=== PATIENT | female | born 1975 | race Caucasian/White ===

== ENCOUNTER 2018-09-25 12:07 | Inpatient (IN) ==
[2018-09-25 12:54] LABS: Basophils # (auto) 0.01 K/uL (0-0.2); Basophils % (auto) 0.2 %; Eosinophils # (auto) 0.06 K/uL (0-0.5); Eosinophils % (auto) 0.9 %; Hematocrit (blood only) 35.1 % (37-47); Hemoglobin 11.5 g/dL (12.0-16.0); Immature Granulocytes # (auto) 0.01 K/uL (0.00-0.02); Immature Granulocytes % (auto) 0.2 %; Lymphocytes % (auto) 12.5 %; Mean Corpuscular Hgb Conc 32.8 g/dL (32-36); Mean Corpuscular Volume 84.2 fL (80-100); Mean Platelet Volume 9.9 fL (7.4-10.4); Monocytes # (auto) 0.38 K/uL (0.11-0.59); Monocytes % (auto) 5.9 %; Neutrophils # (auto) 5.14 K/uL (1.4-6.5); Neutrophils % (auto) 80.3 %; Platelet Count 215 K/uL (130-400); RDW Coefficient of Variation 14.8 % (11.5-14.5); RDW Standard Deviation 45.4 fL (36.4-46.3); Red Blood Count 4.17 M/uL (4.2-5.4)
[2018-09-25 13:11] LABS: Calcium 8.6 mg/dl (8.5-10.1); Creatinine Clr Calc Pharmacy 196.4 ml/min; Est GFR (African American) 135.6; Potassium 3.9 mmol/L (3.5-5.1)
[2018-09-25] MEDS ORDERED: VANCOMYCIN CONSULT ACTIVE PRN ×2 (13:22→16:12)
[2018-09-25] MEDS ORDERED: VANCOMYCIN HCL 1,000 MG/270 ML BAG IV STA (13:22)
[2018-09-25] MEDS ORDERED: LISINOPRIL 40 MG TAB PO SCH (14:15)
--- NOTE | 2018-09-25 14:19 | History & Physical Report ---
Date of Service September 25, 2018 Assessment & Plan (1) Cellulitis of right lower extremity: This is a 42-year-old male who has a significant past medical history of T2 DM, psoriasis, polycystic ovarian disease who presents to [facility] secondary to increased redness and swelling of right lower extremity x 3 days. Patient does not meet SIRS or Sepsis criteria WBC 6.4, Lactate 1.2, afebrile, HR > 90 Pt does have extensive RLE Cellulitis which failed outpatient therapy of keflex -admit to med/surg telemetry given tachycardia/HTN -Continue IV Vanco, dosed per pharmacy -wound culture drainage and MRSA swab -monitor closely for improvement -Venous doppler negative 09/23 so do not feel this needs repeated at this time. (2) Diabetes: -Last A1C 7.5 02/2018 -hold outpatient regimen of jardiance, glipizide and tradjenta -Place on lantus/novolog per protocol (3) HTN (hypertension): -blood pressure elevated on admission -Will give pts home dose of lisinopril now as well as control pain, likely a precipitating factor -continue lisinopril (4) DVT prophylaxis: -lovenox given immobility from RLE cellulitis Disposition: D/C to home when able Follow up: PCP Dr. Cedillo upon discharge Patient was seen and examined in collaboration with Dr. Arango, please see addendum Starting 09/26/18 patient will be under the care of Dr. Jay History of Present Illness Chief Complaint: RLE redness and swelling x 3 days. Primary Care Provider: Lauren Klein This is a 42-year-old male who has a significant past medical history of T2 DM, psoriasis, polycystic ovarian disease who presents to [facility] secondary to increased redness and swelling of right lower extremity x 3. Patient symptoms initially started on 09/22 with erythema to the right pretibial region. She presented to urgent care on 09/23. She underwent venous Doppler which was negative for DVT and placed on Keflex 500 mg 4 times daily for cellulitis. Patient has not missed a dose of Keflex, but has noticed minimal improvement of symptoms. She was seen by PCP today Dr. Klein who recommended patient be seen in ED for likely IV antibiotics. Pt has hx of b/l lower ext cellulitis in 2000 which required IV antibiotics. She has no known injury to trauma to RLE but she does have active psoriasis. She overall feels chills and woke up with sweats early this morning, nausea and decreased appetite. Further she complains of significant right lower extremity pain 03/03. Upon arrival to ED she noticed drainage from right lower extremity. She denies documented fever, dizziness, lightheadedness, chest pain, shortness breath, palpitations, emesis, diarrhea, abdominal pain, dysuria, increased urgency or frequency with urination. Allergies Allergy/AdvReac Type Severity Reaction Status Date / Time metformin AdvReac Nausea Unverified 09/25/18 12:50 Home Medications Home Medications Medication Instructions Recorded Confirmed Type aspirin 81 mg PO DAILY 09/25/18 09/25/18 History atorvastatin 20 mg PO HS 09/25/18 09/25/18 History clobetasol 1 applic TOPICAL BID 09/25/18 09/25/18 History empagliflozin [Jardiance] 25 mg PO DAILY 09/25/18 09/25/18 History glipizide 10 mg PO DAILY 09/25/18 09/25/18 History linagliptin [Tradjenta] 5 mg PO DAILY 09/25/18 09/25/18 History lisinopril 40 mg PO DAILY 09/25/18 09/25/18 History sulindac 200 mg PO BID 09/25/18 09/25/18 History Past Med/Surg History Medical History HTN (hypertension) (Chronic) Polycystic ovarian disease (Chronic) Psoriasis (Chronic) Diabetes (Chronic) Surgical History History of section (Chronic) x 2 History of tooth extraction (Chronic) all teeth extraced Family History Mother Pulmonary embolism Father Diabetes Grandmother (Maternal) Diabetes CHF (congestive heart failure) Social History Preferred Language: Tajik Communication Ability: Effective Switchgear Repairer Required: No Beliefs That Will Affect Care: None marital status: Current Living Situation: Spouse and Family Current Living Situation Comment: and 2 children current occupational status: other 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 Other Information That Helps Us Care for You: No Feels Safe at Home: Yes Safety Concerns: Feels Safe At This Time Smoking Status: Never smoker Hx Alcohol Use: No Hx Substance Use: No Review of Systems All systems reviewed & are unremarkable except as noted in HPI & below Physical Exam Vital Signs (Past 24 Hours): Last Vital Signs Temp 36.7 C 09/25/18 12:17 Pulse 100 H 09/25/18 12:17 Resp 20 09/25/18 12:17 BP 162/97 H 09/25/18 12:17 Pulse Ox 99 09/25/18 12:17 Physical Exam: Gen: WD/WN, morbidly obese, F, NAD, sitting up in bed, pleasant, conversing easily Head: Normocephalic, Atraumatic Eyes: Sclera normal, no conjunctival injection, PERRLA, EOMI ENT: Gross hearing intact, normal pharynx, mucous membranes moist, absent dentition Neck: supple, no adenopathy, No JVD, no bruit, Resp: Clear to auscultation b/l, no wheeze, rales, rhonchi. Normal insp/exp effort, no accessory muscle use CV: Regular rate, regular rhythm, 2/6 harsh natasha noted RUSB, no rub, gallop, or ectopy Abd: +BS x 4, +obese, soft, nontender, nondistended Musculoskeletal: moves extremities active rom x 4, strength intact, good assistant child care teacher strength Extremities: RLE edema with significant erythema and warmth starting at medial mallelolar region extending 1/[address] up pretibial surface anterior and extending to popliteal fossa posterior, blanchable, warm, painful to touch. RLE anteriorly has area of clear drainage, LLE no edema, + area of venous insufficiency from prior cellulitis. Skin: warm, moist, no rash, negative turgor, cap refill < 2sec Neuro: Alert and oriented x 3, speech normal, good mood/affect, cran nerve 2-12 intact grossly : deferred Results & Data Laboratory Results Short CBC 09/25/18 Range/Units 12:42 WBC 6.40 (4.8-10.8) K/uL Hgb 11.5 L (12.0-16.0) g/dL Hct 35.1 L (37-47) % Plt Count 215 (130-400) K/uL BMP 09/25/18 12:42 Sodium 137 Potassium 3.9 Chloride 101 Carbon Dioxide 29 BUN 8 Creatinine 0.52 L Glucose 209 H Calcium 8.6 Diagnostic Findings Venous doppler U/S from 09/23/18 VASCULAR LAB RESULTS DATE OF EXAM: 09/23/18 PRESENTING CONDITIONS: pain and redness This is an interpretation of an exam performed at the [facility]. PHYSICIAN REPORT: Lower Extremity Venous Duplex Examination Immediately before proceeding with the vascular lab procedure reported below, the identity of the patient, the correct exam and the correct procedural site were verified. Color flow Doppler, spectral analysis, and transducer compression techniques were applied during this ultrasound image examination. RIGHT LOWER EXTREMITY On duplex examination, the right common femoral vein, the sapheno-femoral junction, the femoral vein in the thigh and popliteal vein are all free of echogenic densities and demonstrate normal transducer compressibility during montalvo scale imaging and normal respiratory and augmentation response during Doppler interrogation. The posterior tibial veins and peroneal veins demonstrate no evidence of thrombosis. The contralateral common femoral vein is patent without echogenic densities. IMPRESSION: Patent right lower extremity venous system. No evidence of acute deep venous thrombosis of the right lower extremity. Additional Comments: The patient's primary care physician was contacted with a preliminary report. Medications Administered Vancomycin HCl (Vancomycin Hcl) 1,000 mg in 270 mls @ 125 mls/hr IV NOW STA Stop: 09/25/18 15:31 Last Admin: 09/25/18 13:58 Dose: 125 mls/hr Documented by: [id number] Code Status & VTE Plan Code Status full code VTE Prophylaxis Plan VTE Prophylaxis will be ordered: Yes Supervising Physician Co-Signing Physician Notes Patient is a 42-year-old female with history of diabetes and other problems presents with history of worsening redness, pain and swelling of her right lower extremity since 3 days duration. She had a venous Doppler as outpatient which showed no DVT. Patient failed p.o. Keflex which was started as outpatient. On exam patient is morbidly obese, no apparent distress, normocephalic atraumatic, lungs are clear to auscultation, S1-S2, tachycardia, no murmur abdomen is soft nontender, right lower extremity erythematous, tender, swelling noted. Neurologically no focal deficits. Patient is admitted for the management of right lower extremity cellulitis. No signs of sepsis. Patient will be started on broad-spectrum antibiotics with Vanco and Zosyn. Check MRSA swab. Blood cultures were obtained. Consider repeat imaging if no improvement. Lovenox for DVT prophylaxis. I personally reviewed the record. Patient is interviewed and examined at bedside. Patient's care is coordinated with Stephy Cash PA-C. Please refer to the documentation above for details of patient's presentation and for discussion of other issues. (1) Diabetes Diabetes mellitus complication detail: with dermatitis Diabetes mellitus complication status: with skin complications Diabetes mellitus predatory animal exterminator insulin use: without predatory animal exterminator use Diabetes mellitus type: type 2 Qualified Code(s): E11.620 - Type 2 diabetes mellitus with diabetic dermatitis (2) HTN (hypertension) Hypertension type: essential hypertension Qualified Code(s): I10 - Essential (primary) hypertension
[2018-09-25] MEDS ORDERED: MoRPHine SULFATE 4 MG/ML 1 ML CARP\\VIAL IV STA (14:43)
--- NOTE | 2018-09-25 16:05 | Emergency Department Note ---
Entered by Eulalia Nguyen acting as a scribe for Jeffry Pena History of Present Illness General Chief complaint: Infection Stated complaint: CELLULITIS, SENT BY DR CRESPO Time Seen by Provider: 09/25/18 12:26 Source: patient Limitations: no limitations History of Present Illness Provider complaint: infection Onset (ago): day(s) 3 Location: lower extremity and right Maximum Pain Intensity: 9 Associated symptoms: no fever/chills Treatments prior to arrival: other (cephalexin) The patient is a 42 year old female who presents to the Emergency Room with complaints of an infection on her right leg that began 3 days prior to arrival. The patient states that she went to [facility] on Saturday and was given 500mg of cephalexin 2x a day. The patient denies any fevers. The patient states that her leg just began draining. The patient states that she has a history of psoriasis and diabetes. Home Medications Home Medications Medication Instructions Recorded Confirmed Type aspirin 81 mg PO DAILY 09/25/18 09/25/18 History atorvastatin 20 mg PO HS 09/25/18 09/25/18 History clobetasol 1 applic TOPICAL BID 09/25/18 09/25/18 History empagliflozin [Jardiance] 25 mg PO DAILY 09/25/18 09/25/18 History glipizide 10 mg PO DAILY 09/25/18 09/25/18 History linagliptin [Tradjenta] 5 mg PO DAILY 09/25/18 09/25/18 History lisinopril 40 mg PO DAILY 09/25/18 09/25/18 History sulindac 200 mg PO BID 09/25/18 09/25/18 History Allergies Allergy/AdvReac Type Severity Reaction Status Date / Time metformin AdvReac Nausea Unverified 09/25/18 12:50 Past Med/Surg History Medical History HTN (hypertension) (Chronic) Polycystic ovarian disease (Chronic) Psoriasis (Chronic) Diabetes (Chronic) Surgical History History of section (Chronic) x 2 History of tooth extraction (Chronic) all teeth extraced Family History Mother Pulmonary embolism Father Diabetes Grandmother (Maternal) Diabetes CHF (congestive heart failure) Social History Preferred Language: Sinhala Communication Ability: Effective Tire Groover Required: No Beliefs That Will Affect Care: None marital status: Current Living Situation: Spouse and Family Current Living Situation Comment: and 2 children current occupational status: other 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 and A total of 10 systems reviewed and were otherwise negative See HPI for pertinent positives & negatives. A total of 10 systems reviewed and were otherwise negative. Physical Exam Vital Signs Vital Signs - 24 hr 09/25/18 12:17 09/25/18 14:33 09/25/18 15:20 Temperature 36.7 C Temperature Source Oral Sepsis Recent Fever Within 48 Hours No Sepsis New/Unexplained Change in Mental Status No Sepsis Action Taken by Nursing No Action Required Pulse Rate 100 H Pulse Rate [Right Finger] 85 Pulse Rhythm Regular Pulse Rhythm [Right Finger] Regular Pulse Strength Normal Pulse Strength [Right Finger] Normal Respiratory Rate 20 18 Respiratory Effort / Characteristics Non-Labored Spontaneous Non-Labored Respiratory Depth Normal Normal Respiratory Pattern Regular Blood Pressure 162/97 H Blood Pressure [Left Arm] 190/121 H 154/82 H Blood Pressure Mean 118 Blood Pressure Mean [Left Arm] 144 106 Blood Pressure Position Sitting Pulse Oximetry 99 98 Oxygen Delivery Method Room Air GENERAL: She is oriented to person, place, and time. She appears well-developed and well-nourished. She does not appear distressed. HENT: Exam performed. Head: Normocephalic and atraumatic. Right Ear: External ear normal. No mastoid tenderness. Left Ear: External ear normal. No mastoid tenderness. Mouth/Throat: The oropharynx is clear and moist. No trismus in the jaw. No dental abscesses or uvula swelling. No oropharyngeal exudate or tonsillar abscesses. EYES: Conjunctivae and EOM are normal. Pupils are equal, round, and reactive to light. Right eye exhibits no discharge. Left eye exhibits no discharge. No scleral icterus. NECK: Normal range of motion. Neck supple. No JVD present. No spinous process tenderness present. No carotid bruit present. No rigidity. No tracheal deviation and normal range of motion present. No Brudzinski's sign and no Kernig's sign noted. CV: Normal rate, regular rhythm, normal heart sounds and intact distal pulses. There is no peripheral edema. Palpable radial pulses bue. PULM/CHEST: Effort normal and breath sounds normal. No respiratory distress. No stridor. She has no wheezes. She has no rales. Chest Wall: She exhibits no tenderness. ABD: The abdomen is soft. Bowel sounds are normal. She has no distension. No mass is present. There is no tenderness. There is no rebound, no guarding, no Serrano's sign and no tenderness at McBurney's point. Rovsig negative MUSC/SKEL: Normal range of motion. There is no peripheral edema, tenderness or deformity. LYMPH: No cervical adenopathy. NEURO: She is alert and oriented to person, place, and time. She has normal strength. No cranial nerve deficit or sensory deficit. Coordination and gait normal. GCS eye subscore is 4. GCS verbal subscore is 5. GCS motor subscore is 6. cerbellar tests wnl. SKIN: Right lower extremity on the anterior knee and posterior thigh there is a patch of psoriasis with silver scales. Diffuse erythema, warmness, and tenderness to touch over the lower extremity from the foot to the posterior calf up to the posterior thigh. Drainage, no fluctuant area, no vesicles, Nikolsky sign negative. PSYCH: She has a normal mood and affect. Her behavior is normal. Judgment and thought content normal. Course 1227: Past medical records reviewed. The patient was evaluated in room C12A, and a complete history and physical examination were performed. 1324: The patient's vital signs are stable. Labs are within normal limits. Patient will be admitted to the hospital service for cellulitis failed outpatient treatment. 1 g of vancomycin given in emergency department. I discussed the patient's case with [facility] who will evaluate the patient for further hospitalization. Consultations Consultation #1: Stephy Ortiz [facility] Time: 13:24 Administered Medications Discontinued Medications Vancomycin HCl (Vancomycin Hcl) 1,000 mg in 270 mls @ 125 mls/hr IV NOW STA Stop: 09/25/18 15:31 Last Admin: 09/25/18 13:58 Dose: 125 mls/hr Documented by: [id number] Lisinopril (Zestril) 40 mg PO DAILY CAILIN Stop: 10/25/18 14:14 Last Admin: 09/25/18 14:30 Dose: 40 mg Documented by: [id number] Morphine Sulfate (Morphine Sulfate) 4 mg IV NOW STA Stop: 09/25/18 14:44 Last Admin: 09/25/18 15:05 Dose: 4 mg Documented by: [id number] Medical Decision Making Medical Records Attestation: I reviewed the patient's medical records. Home Medications Current Medication List: was personally reviewed by me Laboratory Data Attestation: I reviewed the patient's lab results. Result diagrams: 09/25/18 12:42 09/25/18 12:42 Lab Results 09/25/18 09/25/18 09/25/18 Range/Units 12:42 12:42 12:42 WBC 6.40 (4.8-10.8) K/uL RBC 4.17 L (4.2-5.4) M/uL Hgb 11.5 L (12.0-16.0) g/dL Hct 35.1 L (37-47) % MCV 84.2 (80-100) fL MCH 27.6 (25-34) pg MCHC 32.8 (32-36) g/dL RDW Std Deviation 45.4 (36.4-46.3) fL RDW Coeff of Kayy 14.8 H (11.5-14.5) % Plt Count 215 (130-400) K/uL MPV 9.9 (7.4-10.4) fL Immature Gran % (Auto) 0.2 % Neut % (Auto) 80.3 % Lymph % (Auto) 12.5 % [place] % (Auto) 5.9 % Eos % (Auto) 0.9 % Baso % (Auto) 0.2 % Immature Gran # (Auto) 0.01 (0.00-0.02) K/uL Neut # (Auto) 5.14 (1.4-6.5) K/uL Lymph # (Auto) 0.80 L (1.2-3.4) K/uL [place] # (Auto) 0.38 (0.11-0.59) K/uL Eos # (Auto) 0.06 (0-0.5) K/uL Baso # (Auto) 0.01 (0-0.2) K/uL Sodium 137 (136-145) mmol/L Potassium 3.9 (3.5-5.1) mmol/L Chloride 101 (98-107) mmol/L Carbon Dioxide 29 (21-32) mmol/L Anion Gap 7.0 (3-11) BUN 8 (7-18) mg/dl Creatinine 0.52 L (0.6-1.2) mg/dl Est Cr Clr Drug Dosing 196.4 ml/min Est GFR ( Amer) 135.6 Est GFR (Non-Af Amer) 117.0 BUN/Creatinine Ratio 15.0 (10-20) Glucose 209 H (70-99) mg/dl Lactate 1.2 (0.4-2.0) mmol/L Calcium 8.6 (8.5-10.1) mg/dl Blood Pressure Blood Pressure Findings: Elevated blood pressure Blood Pressure Disposition: further management by hospitalist MDM Narrative The patient's vital signs are stable. Labs are within normal limits. Patient will be admitted to the hospital service for cellulitis failed outpatient treatment. 1 g of vancomycin given in emergency department. I discussed the patient's case with Stephy Molina [facility] Hospitalist who will evaluate the patient for further hospitalization. Impression & Plan Cellulitis Discharge Plan Visit Data Chief Complaint: Infection Stated Complaint: CELLULITIS, SENT BY DR CRESPO ED Provider: Jeffry Pena Discharge Problem: Cellulitis Patient Disposition: Admitted As Inpatient Discharge Instructions Interventions: ED Discharge Assessment Last Done: 09/25/18 15:48 The scribe's documentation has been prepared under my direction and personally reviewed by me in its entirety. I confirm that the note above accurately reflects all work, treatment, procedures, and medical decision making performed by me.
[2018-09-25] MEDS ORDERED: GLUCAGON FOR INJ 1 MG VIAL SQ PRN (16:12)
[2018-09-25] MEDS ORDERED: ONDANSETRON INJ 2 MG/ML 2 ML VIAL IV PRN (16:12)
[2018-09-25] MEDS ORDERED: ALUMINUM/MAGNESIUM SUSP 30 ML UDC PO PRN (16:12)
[2018-09-25] MEDS ORDERED: GLUCOSE 10 TABS/TUBE PO PRN (16:12)
[2018-09-25] MEDS ORDERED: CARBOHYDRATES FOR HYPOGLYCEMIA PO PRN (16:12)
[2018-09-25] MEDS ORDERED: GLUCOSE 40% GEL 15 GM TUBE PO PRN (16:12)
[2018-09-25] MEDS ORDERED: MAGNESIUM HYDROXIDE SUSP 30 ML UDC PO PRN (16:12)
[2018-09-25] MEDS ORDERED: DEXTROSE 50% 50 ML SYRINGE IV PRN (16:12)
[2018-09-25] MEDS ORDERED: MoRPHine SULFATE 2 MG/ML CARP IV PRN (16:12)
[2018-09-25] MEDS ORDERED: POLYETHYLENE (MIRALAX) 17 GM PACK PO PRN (16:12)
[2018-09-25 16:57] LABS: INR 1.1 (0.9-1.1); Partial Thromboplastin Ratio 1.3; Partial Thromboplastin Time 36.4 Seconds (21.0-31.0); Prothrombin Time 10.9 Seconds (9.0-12.0)
[2018-09-25] MEDS: VANCOMYCIN HCL 1,500 MG in SODIUM CHLORIDE 0.9% 500 ML IV SCH (17:08)
[2018-09-25] MEDS: INSULIN ASPART 100 UNITS/ML 3 ML PEN SC SCH ×2 (17:29→20:38)
[2018-09-25] MEDS: ENOXAPARIN INJ 40 MG/0.4 ML SYR SQ SCH (17:51)
[2018-09-25] MEDS ORDERED: PIPERACILL/TAZOBAC CONSULT ACTIVE PRN (20:00)
[2018-09-25] MEDS ORDERED: PIPERACILLIN/TAZOBACTAM 4.5 GM in DEXTROSE 5% 100 ML IV ONE (20:00)
[2018-09-25] MEDS: OXYCODONE HCL IR 5 MG TAB (IMMEDIATE RELEASE) PO PRN (20:23)
[2018-09-25] MEDS: ATORVASTATIN 20 MG TAB PO SCH (20:23)
[2018-09-25] MEDS: INSULIN GLARGINE SOLOSTAR 100 UNITS/ML 3 ML PEN SC SCH (20:38)
[2018-09-26] MEDS: PIPERACILLIN/TAZOBACTAM 4.5 GM in DEXTROSE 5% 100 ML IV SCH ×3 (01:33→18:12)
[2018-09-26] MEDS: VANCOMYCIN HCL 1,500 MG in SODIUM CHLORIDE 0.9% 500 ML IV SCH ×2 (01:33→10:54)
[2018-09-26] MEDS: OXYCODONE HCL IR 5 MG TAB (IMMEDIATE RELEASE) PO PRN ×3 (01:39→19:19)
[2018-09-26 07:10] LABS: Basophils # (auto) 0.01 K/uL (0-0.2); Basophils % (auto) 0.3 %; Eosinophils # (auto) 0.08 K/uL (0-0.5); Eosinophils % (auto) 2.2 %; Hematocrit (blood only) 34.5 % (37-47); Hemoglobin 11.1 g/dL (12.0-16.0); Immature Granulocytes # (auto) 0.01 K/uL (0.00-0.02); Immature Granulocytes % (auto) 0.3 %; Mean Corpuscular Hgb Conc 32.2 g/dL (32-36); Mean Corpuscular Volume 85.2 fL (80-100); Mean Platelet Volume 9.4 fL (7.4-10.4); Monocytes # (auto) 0.37 K/uL (0.11-0.59); Monocytes % (auto) 10.2 %; Neutrophils # (auto) 2.76 K/uL (1.4-6.5); Platelet Count 204 K/uL (130-400); RDW Coefficient of Variation 14.9 % (11.5-14.5); RDW Standard Deviation 46.5 fL (36.4-46.3); Red Blood Count 4.05 M/uL (4.2-5.4); White Blood Count 3.63 K/uL (4.8-10.8)
[2018-09-26 07:36] LABS: BUN Creatinine Ratio 13.4 (10-20); Calcium 8.6 mg/dl (8.5-10.1); Creatinine Clr Calc Pharmacy 160.7 ml/min; Est GFR (African American) 127.3; Est GFR (Non-African American) 109.9; Potassium 3.9 mmol/L (3.5-5.1)
[2018-09-26 07:41] LABS: Ferritin 202.6 ng/ml (8-388)
[2018-09-26 07:42] LABS: Estimated Average Glucose 235 mg/dl; Hemoglobin A1C 9.8 % (4.5-5.6)
[2018-09-26 07:46] LABS: Folate (Folic Acid) 9.97 ng/ml (>5.38)
[2018-09-26] MEDS: LISINOPRIL 40 MG TAB PO SCH (08:58)
[2018-09-26] MEDS: ASPIRIN 81 MG ECTAB PO SCH (08:58)
[2018-09-26] MEDS: INSULIN GLARGINE SOLOSTAR 100 UNITS/ML 3 ML PEN SC SCH ×2 (08:59→20:57)
[2018-09-26] MEDS: INSULIN ASPART 100 UNITS/ML 3 ML PEN SC SCH ×4 (09:03→20:57)
[2018-09-26] MEDS ORDERED: VANCOMYCIN TROUGH ONE (09:30)
--- NOTE | 2018-09-26 11:57 | Pharmacy Report ---
Pharmacy Abx Dose Short Note - Date of Service September 26, 2018 - Assessment & Plan Assessment 42 year old F receiving vancomycin and Zosyn for treatment of cellulitis (failed Keflex 500 mg QID) Day # 2 of antimicrobial therapy. Plan Vancomycin * Trough level of 10.0 mcg/mL is subtherapeutic. Expect patient to accumulate secondary to obesity but doubt patient will achieve level about 15 mcg/mL without an increase in dose. * Change to 1750 mg IV every 8 hours plus start 2 hours early. (This is a 20% increase). * Goal trough level for cellulitis, failure of Keflex : 15 to 20 mcg/mL * Trough ordered for: 09/27/18 prior to 1600 dose. Pharmacy will continue to follow and will adjust dose/frequency as necessary. Thank you.
[2018-09-26] MEDS: ACETAMINOPHEN 325 MG TAB PO PRN (14:20)
--- NOTE | 2018-09-26 15:19 | Hospitalist Progress Note ---
Date of Service September 26, 2018 Assessment & Plan (1) Cellulitis of right lower extremity: This is a 42-year-old male who has a significant past medical history of T2 DM, psoriasis, polycystic ovarian disease who presents to [facility] secondary to increased redness and swelling of right lower extremity x 3 days. Patient does not meet SIRS or Sepsis criteria Pt does have extensive RLE Cellulitis which failed outpatient therapy of keflex Continue IV Vanco, dosed per pharmacy wound culture drainage and MRSA swab Venous doppler negative 09/23 so do not feel this needs repeated at this time. Clinically better We will continue current treatment (2) Diabetes: -Last A1C 7.5 02/2018 -hold outpatient regimen of jardiance, glipizide and tradjenta -Place on lantus/novolog per protocol -We will put her on usual dose of outpatient antidiabetic medication (3) HTN (hypertension): -blood pressure elevated on admission -Will give pts home dose of lisinopril now as well as control pain, likely a precipitating factor -continue lisinopril (4) DVT prophylaxis: -lovenox given immobility from RLE cellulitis Disposition: D/C to home when able Follow up: PCP Dr. Cedillo upon discharge Subjective 09/26 The patient was seen and examined the medical unit She is a 42-year-old obese female with history of polycystic ovarian disease, diabetes and hypertension was admitted with spreading cellulitis of the right leg Has been feeling a little bit better since admission Right leg swelling is better and redness has been improving Denies any other significant symptoms Physical Exam Vital Signs (Past 24 Hours): Last Vital Signs Temp 37.1 C 09/26/18 12:04 Pulse 96 H 09/26/18 12:04 Resp 17 09/26/18 12:04 BP 178/81 H 09/26/18 12:04 Pulse Ox 95 09/26/18 12:04 Physical Exam: Sitting in a chair without any distress Constitutional: WD/WN, vitals as above Eyes: PERRL, conjunctivae normal, anicteric sclerae ENMT: external ear and nose normal, oropharynx normal Neck: trachea midline, no thyromegaly Respiratory: normal respiratory effort Auscultation: lungs clear to auscultation bilaterally Cardiovascular: Rate/Rhythm: regular rate and regular rhythm Heart Sounds: normal S1 and normal S2 Gastrointestinal (Abdomen): Inspection/Auscultation: abdomen normal to inspection, + abdomen distended and normal bowel sounds Percussion/Palpation: abdomen soft Musculoskeletal: Extremities: + lower extremity abnormal to inspection (Swelling with redness and tenderness with weightbearing from inner medial ) Left Results & Data Laboratory Results Short CBC 09/26/18 Range/Units 06:48 WBC 3.63 L (4.8-10.8) K/uL Hgb 11.1 L (12.0-16.0) g/dL Hct 34.5 L (37-47) % Plt Count 204 (130-400) K/uL BMP 09/26/18 06:48 Sodium 139 Potassium 3.9 Chloride 103 Carbon Dioxide 29 BUN 8 Creatinine 0.63 Glucose 207 H Calcium 8.6 Medications Administered Current Inpatient Medications Acetaminophen (Tylenol) 650 mg PO Q4H PRN PRN Reason: Pain or Fever Stop: 10/25/18 16:11 Last Admin: 09/26/18 14:20 Dose: 650 mg Documented by: Al Hydrox/Mg Hydrox/Simethicone (Maalox) 15 ml PO Q4H PRN PRN Reason: Dyspepsia Stop: 10/25/18 16:11 Aspirin (Ecotrin Ectab) 81 mg PO DAILY [facility] Stop: 10/26/18 08:59 Last Admin: 09/26/18 08:58 Dose: 81 mg Documented by: Atorvastatin Calcium (Lipitor) 20 mg PO HS [facility] Stop: 10/25/18 20:59 Last Admin: 09/25/18 20:23 Dose: 20 mg Documented by: Dextrose (Dextrose 50%) 25 - 50 ml IV UD PRN; Protocol PRN Reason: Hypoglycemia Protocol Stop: 10/25/18 16:11 Enoxaparin Sodium (Lovenox) 40 mg SQ Q24H [facility] Stop: 10/25/18 16:59 Last Admin: 09/25/18 17:51 Dose: 40 mg Documented by: Glucagon (Glucagen) 1 mg SQ UD PRN; Protocol PRN Reason: Hypoglycemia Protocol Stop: 10/25/18 16:11 Glucose (Dex4 Glucose) 4 - 8 tabs PO UD PRN; Protocol PRN Reason: Hypoglycemia Protocol Stop: 10/25/18 16:11 Glucose (Glucose 40%) 15 - 30 gm PO UD PRN; Protocol PRN Reason: Hypoglycemia Protocol Stop: 10/25/18 16:11 Piperacillin Sod/Tazobactam (Sod 4.5 gm/ Dextrose) 120 mls @ 30 mls/hr IV Q8H [facility]; Protocol Stop: 10/06/18 01:59 Last Infusion: 09/26/18 14:20 Dose: Infused Documented by: Vancomycin HCl 1,750 mg/ (Sodium Chloride) 535 mls @ 200 mls/hr IV Q8H [facility] Stop: 10/05/18 11:59 Insulin Aspart (Novolog Flexpen) 0 units SC ACHS [facility] Stop: 10/25/18 16:29 Last Admin: 09/26/18 12:29 Dose: 3 units Documented by: Insulin Glargine (Lantus Solostar Pen) 0 - 10 units SC BID [facility]; Protocol Stop: 10/25/18 20:59 Last Admin: 09/26/18 08:59 Dose: 10 units Documented by: Lisinopril (Zestril) 40 mg PO QAM [facility] Stop: 10/26/18 08:59 Last Admin: 09/26/18 08:58 Dose: 40 mg Documented by: Magnesium Hydroxide (Milk Of Magnesia) 30 ml PO Q12H PRN PRN Reason: Constipation Stop: 10/25/18 16:11 Miscellaneous (Carbohydrates For Hypoglycemia) 15 - 30 gm PO UD PRN PRN Reason: Hypoglycemia Treatment Stop: 10/25/18 16:11 Miscellaneous Information (Consult) 1 ea N/A UD PRN PRN Reason: Consult Stop: 10/25/18 16:11 Miscellaneous Information (Consult) 1 ea N/A UD PRN PRN Reason: Consult Stop: 10/25/18 19:59 Morphine Sulfate (Morphine Sulfate) 2 mg IV Q4H PRN PRN Reason: Severe Pain Stop: 10/09/18 16:11 Ondansetron HCl (Zofran) 4 mg IV Q6H PRN PRN Reason: Nausea Stop: 10/25/18 16:11 Oxycodone HCl (Roxicodone Immediate Rel) 5 mg PO Q6H PRN PRN Reason: Moderate Pain Stop: 10/09/18 16:11 Last Admin: 09/26/18 11:00 Dose: 5 mg Documented by: Polyethylene Glycol (Miralax Powder Packet) 17 gm PO DAILY PRN PRN Reason: Constipation Stop: 10/25/18 16:11 (1) Diabetes Diabetes mellitus complication detail: with dermatitis Diabetes mellitus complication status: with skin complications 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
[2018-09-26] MEDS: VANCOMYCIN HCL 1,750 MG in SODIUM CHLORIDE 0.9% 500 ML IV SCH (16:29)
[2018-09-26] MEDS: ENOXAPARIN INJ 40 MG/0.4 ML SYR SQ SCH (17:48)
[2018-09-26] MEDS: ATORVASTATIN 20 MG TAB PO SCH (20:55)
[2018-09-27] MEDS: VANCOMYCIN HCL 1,750 MG in SODIUM CHLORIDE 0.9% 500 ML IV SCH ×2 (00:02→07:44)
[2018-09-27] MEDS: OXYCODONE HCL IR 5 MG TAB (IMMEDIATE RELEASE) PO PRN ×3 (00:12→21:20)
[2018-09-27] MEDS: PIPERACILLIN/TAZOBACTAM 4.5 GM in DEXTROSE 5% 100 ML IV SCH ×3 (02:52→17:55)
[2018-09-27 06:34] LABS: Basophils # (auto) 0.01 K/uL (0-0.2); Basophils % (auto) 0.4 %; Eosinophils # (auto) 0.04 K/uL (0-0.5); Eosinophils % (auto) 1.6 %; Lymphocytes % (auto) 23.3 %; Mean Corpuscular Hgb Conc 32.3 g/dL (32-36); Mean Corpuscular Volume 85.2 fL (80-100); Monocytes # (auto) 0.36 K/uL (0.11-0.59); Neutrophils # (auto) 1.56 K/uL (1.4-6.5); Neutrophils % (auto) 60.7 %; Platelet Count 200 K/uL (130-400); RDW Coefficient of Variation 14.9 % (11.5-14.5); RDW Standard Deviation 47.2 fL (36.4-46.3); Red Blood Count 3.64 M/uL (4.2-5.4); White Blood Count 2.57 K/uL (4.8-10.8)
[2018-09-27 06:51] LABS: BUN Creatinine Ratio 10.2 (10-20); Creatinine Clr Calc Pharmacy 166.1 ml/min; Est GFR (African American) 128.7; Potassium 3.6 mmol/L (3.5-5.1)
[2018-09-27] MEDS: LISINOPRIL 40 MG TAB PO SCH (07:43)
[2018-09-27] MEDS: ASPIRIN 81 MG ECTAB PO SCH (07:43)
[2018-09-27] MEDS: INSULIN ASPART 100 UNITS/ML 3 ML PEN SC SCH ×4 (08:49→21:25)
[2018-09-27] MEDS: INSULIN GLARGINE SOLOSTAR 100 UNITS/ML 3 ML PEN SC SCH ×2 (08:50→21:26)
--- NOTE | 2018-09-27 12:51 | Hospitalist Progress Note ---
Date of Service September 27, 2018 Assessment & Plan (1) Cellulitis of right lower extremity: This is a 42-year-old male who has a significant past medical history of T2 DM, psoriasis, polycystic ovarian disease who presents to [facility] secondary to increased redness and swelling of right lower extremity x 3 days. Patient does not meet SIRS or Sepsis criteria Pt does have extensive RLE Cellulitis which failed outpatient therapy of keflex Continue IV Vanco, dosed per pharmacy wound culture drainage and MRSA swab-negative Venous doppler negative 09/23 so do not feel this needs repeated at this time. Clinically much better better Blood culture-negative We will continue current medications Likely to be discharged home tomorrow on oral Augmentin (2) Diabetes: -Last A1C 7.5 02/2018 -hold outpatient regimen of jardiance, glipizide and tradjenta -Place on lantus/novolog per protocol -We will put her on usual dose of outpatient antidiabetic medication (3) HTN (hypertension): -blood pressure elevated on admission -Will give pts home dose of lisinopril now as well as control pain, likely a precipitating factor -continue lisinopril (4) DVT prophylaxis: -lovenox given immobility from RLE cellulitis Disposition: D/C to home when able Follow up: PCP Dr. Cedillo upon discharge Subjective 09/26 The patient was seen and examined the medical unit She is a 42-year-old obese female with history of polycystic ovarian disease, diabetes and hypertension was admitted with spreading cellulitis of the right leg Has been feeling a little bit better since admission Right leg swelling is better and redness has been improving Denies any other significant symptoms 09/27 She feels a little better and her right leg swelling is improving The redness is improved but tenderness persisting the calf Denies any other symptoms Physical Exam Vital Signs (Past 24 Hours): Last Vital Signs Temp 36.6 C 09/27/18 11:00 Pulse 86 09/27/18 11:00 Resp 18 09/27/18 11:00 BP 165/89 H 09/27/18 11:00 Pulse Ox 95 09/27/18 11:00 Physical Exam: No apparent distress at rest, OB in a chair Constitutional: WD/WN, vitals as above Eyes: PERRL, conjunctivae normal, anicteric sclerae ENMT: external ear and nose normal, oropharynx normal Neck: trachea midline, no thyromegaly Respiratory: normal respiratory effort Auscultation: lungs clear to auscultation bilaterally Cardiovascular: Rate/Rhythm: regular rate and regular rhythm Heart Sounds: normal S1 and normal S2 Gastrointestinal (Abdomen): Inspection/Auscultation: abdomen normal to inspection, + abdomen distended and normal bowel sounds Percussion/Palpation: abdomen soft Musculoskeletal: Extremities: + lower extremity abnormal to inspection (Moderate improvement of right leg swelling, redness and tenderness) Results & Data Laboratory Results Short CBC 09/27/18 Range/Units 06:23 WBC 2.57 L (4.8-10.8) K/uL Hgb 10.0 L (12.0-16.0) g/dL Hct 31.0 L (37-47) % Plt Count 200 (130-400) K/uL BMP 09/27/18 06:23 Sodium 139 Potassium 3.6 Chloride 105 Carbon Dioxide 29 BUN 6 L Creatinine 0.61 Glucose 146 H Calcium 8.0 L Medications Administered Current Inpatient Medications Acetaminophen (Tylenol) 650 mg PO Q4H PRN PRN Reason: Pain or Fever Stop: 10/25/18 16:11 Last Admin: 09/26/18 14:20 Dose: 650 mg Documented by: Al Hydrox/Mg Hydrox/Simethicone (Maalox) 15 ml PO Q4H PRN PRN Reason: Dyspepsia Stop: 10/25/18 16:11 Aspirin (Ecotrin Ectab) 81 mg PO DAILY [facility] Stop: 10/26/18 08:59 Last Admin: 09/27/18 07:43 Dose: 81 mg Documented by: Atorvastatin Calcium (Lipitor) 20 mg PO HS [facility] Stop: 10/25/18 20:59 Last Admin: 09/26/18 20:55 Dose: 20 mg Documented by: Dextrose (Dextrose 50%) 25 - 50 ml IV UD PRN; Protocol PRN Reason: Hypoglycemia Protocol Stop: 10/25/18 16:11 Enoxaparin Sodium (Lovenox) 40 mg SQ Q24H [facility] Stop: 10/25/18 16:59 Last Admin: 09/26/18 17:48 Dose: 40 mg Documented by: Glucagon (Glucagen) 1 mg SQ UD PRN; Protocol PRN Reason: Hypoglycemia Protocol Stop: 10/25/18 16:11 Glucose (Dex4 Glucose) 4 - 8 tabs PO UD PRN; Protocol PRN Reason: Hypoglycemia Protocol Stop: 10/25/18 16:11 Glucose (Glucose 40%) 15 - 30 gm PO UD PRN; Protocol PRN Reason: Hypoglycemia Protocol Stop: 10/25/18 16:11 Piperacillin Sod/Tazobactam (Sod 4.5 gm/ Dextrose) 120 mls @ 30 mls/hr IV Q8H [facility]; Protocol Stop: 10/06/18 01:59 Last Admin: 09/27/18 10:51 Dose: 30 mls/hr Documented by: Vancomycin HCl 1,750 mg/ (Sodium Chloride) 535 mls @ 200 mls/hr IV Q8H [facility] Stop: 10/05/18 11:59 Last Infusion: 09/27/18 11:18 Dose: Infused Documented by: Insulin Aspart (Novolog Flexpen) 0 units SC ACHS [facility] Stop: 10/25/18 16:29 Last Admin: 09/27/18 08:49 Dose: 5 units Documented by: Insulin Glargine (Lantus Solostar Pen) 0 - 10 units SC BID [facility]; Protocol Stop: 10/25/18 20:59 Last Admin: 09/27/18 08:50 Dose: 5 units Documented by: Lisinopril (Zestril) 40 mg PO QAM [facility] Stop: 10/26/18 08:59 Last Admin: 09/27/18 07:43 Dose: 40 mg Documented by: Magnesium Hydroxide (Milk Of Magnesia) 30 ml PO Q12H PRN PRN Reason: Constipation Stop: 10/25/18 16:11 Miscellaneous (Carbohydrates For Hypoglycemia) 15 - 30 gm PO UD PRN PRN Reason: Hypoglycemia Treatment Stop: 10/25/18 16:11 Miscellaneous Information (Consult) 1 ea N/A UD PRN PRN Reason: Consult Stop: 10/25/18 16:11 Miscellaneous Information (Consult) 1 ea N/A UD PRN PRN Reason: Consult Stop: 10/25/18 19:59 Morphine Sulfate (Morphine Sulfate) 2 mg IV Q4H PRN PRN Reason: Severe Pain Stop: 10/09/18 16:11 Ondansetron HCl (Zofran) 4 mg IV Q6H PRN PRN Reason: Nausea Stop: 10/25/18 16:11 Oxycodone HCl (Roxicodone Immediate Rel) 5 mg PO Q6H PRN PRN Reason: Moderate Pain Stop: 10/09/18 16:11 Last Admin: 09/27/18 08:46 Dose: 5 mg Documented by: Oxymetazoline HCl (Afrin 0.05%) 1 sprays NA BID [facility] Stop: 09/29/18 21:01 Polyethylene Glycol (Miralax Powder Packet) 17 gm PO DAILY PRN PRN Reason: Constipation Stop: 10/25/18 16:11 (1) Diabetes Diabetes mellitus type: type 2 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
[2018-09-27] MEDS: OXYMETAZOLINE 0.05% 30 ML BTL SCH ×2 (13:06→21:19)
[2018-09-27] MEDS ORDERED: VANCOMYCIN TROUGH ONE (15:30)
[2018-09-27] MEDS: ACETAMINOPHEN 325 MG TAB PO PRN (17:08)
[2018-09-27] MEDS: ENOXAPARIN INJ 40 MG/0.4 ML SYR SQ SCH (17:55)
[2018-09-27] MEDS: ATORVASTATIN 20 MG TAB PO SCH (21:20)
[2018-09-28] MEDS: PIPERACILLIN/TAZOBACTAM 4.5 GM in DEXTROSE 5% 100 ML IV SCH ×3 (01:16→18:00)
[2018-09-28] MEDS: ACETAMINOPHEN 325 MG TAB PO PRN (05:40)
[2018-09-28 06:46] LABS: Creatinine Clr Calc Pharmacy 156.1 ml/min; Est GFR (Non-African American) 108.7
[2018-09-28] MEDS: OXYCODONE HCL IR 5 MG TAB (IMMEDIATE RELEASE) PO PRN ×2 (08:46→15:30)
[2018-09-28] MEDS: OXYMETAZOLINE 0.05% 30 ML BTL SCH ×2 (08:47→20:49)
[2018-09-28] MEDS: ASPIRIN 81 MG ECTAB PO SCH (08:48)
[2018-09-28] MEDS: LISINOPRIL 40 MG TAB PO SCH (08:48)
[2018-09-28] MEDS: INSULIN GLARGINE SOLOSTAR 100 UNITS/ML 3 ML PEN SC SCH ×2 (08:50→20:54)
[2018-09-28] MEDS: INSULIN ASPART 100 UNITS/ML 3 ML PEN SC SCH ×4 (08:50→20:53)
[2018-09-28 10:53] LABS: Eosinophils # (auto) 0.05 K/uL (0-0.5); Eosinophils % (auto) 1.7 %; Hematocrit (blood only) 30.9 % (37-47); Hemoglobin 9.9 g/dL (12.0-16.0); Immature Granulocytes # (auto) 0.01 K/uL (0.00-0.02); Immature Granulocytes % (auto) 0.3 %; Lymphocytes % (auto) 26.8 %; Mean Corpuscular Volume 85.4 fL (80-100); Monocytes # (auto) 0.25 K/uL (0.11-0.59); Monocytes % (auto) 8.4 %; Neutrophils # (auto) 1.88 K/uL (1.4-6.5); Neutrophils % (auto) 62.8 %; Platelet Count 213 K/uL (130-400); RDW Coefficient of Variation 14.8 % (11.5-14.5); RDW Standard Deviation 46.6 fL (36.4-46.3); Red Blood Count 3.62 M/uL (4.2-5.4); White Blood Count 2.99 K/uL (4.8-10.8)
--- NOTE | 2018-09-28 11:23 | Hospitalist Progress Note ---
Date of Service September 28, 2018 Assessment & Plan (1) Cellulitis of right lower extremity: This is a 42-year-old male who has a significant past medical history of T2 DM, psoriasis, polycystic ovarian disease who presents to [facility] secondary to increased redness and swelling of right lower extremity x 3 days. Patient does not meet SIRS or Sepsis criteria Pt does have extensive RLE Cellulitis which failed outpatient therapy of keflex Continue IV Vanco, dosed per pharmacy wound culture drainage and MRSA swab-negative Venous doppler negative 09/23 so do not feel this needs repeated at this time. Clinically much better better Blood culture-negative We will continue current medications Likely to be discharged home tomorrow on oral Augmentin Clinically the leg is showing improvement with decreasing redness and spreading of cellulitis Patient complains to have more swelling and more pain Will not discharge home today and advised to have more ambulation Likely to go home tomorrow on Augmentin for a total course of 10 days (2) Diabetes: -Last A1C 7.5 02/2018 -hold outpatient regimen of jardiance, glipizide and tradjenta -Place on lantus/novolog per protocol -We will put her on usual dose of outpatient antidiabetic medication (3) HTN (hypertension): -blood pressure elevated on admission -Will give pts home dose of lisinopril now as well as control pain, likely a precipitating factor -continue lisinopril (4) DVT prophylaxis: -lovenox given immobility from RLE cellulitis Disposition: D/C to home when able Follow up: PCP Dr. Cedillo upon discharge Subjective 09/26 The patient was seen and examined the medical unit She is a 42-year-old obese female with history of polycystic ovarian disease, diabetes and hypertension was admitted with spreading cellulitis of the right leg Has been feeling a little bit better since admission Right leg swelling is better and redness has been improving Denies any other significant symptoms 09/27 She feels a little better and her right leg swelling is improving The redness is improved but tenderness persisting the calf Denies any other symptoms 09/28 She complains to have more pain involving the right leg today Pain is worse with ambulation Denies any fever and/or chills Physical Exam Vital Signs (Past 24 Hours): Last Vital Signs Temp 37 C 09/28/18 11:15 Pulse 81 09/28/18 11:15 Resp 18 09/28/18 11:15 BP 165/91 H 09/28/18 11:15 Pulse Ox 94 09/28/18 11:15 Physical Exam: Lying in bed comfortably. Anxious to go home but cannot do so due to pain Constitutional: WD/WN, vitals as above Eyes: PERRL, conjunctivae normal, anicteric sclerae ENMT: external ear and nose normal, oropharynx normal Neck: trachea midline, no thyromegaly Respiratory: normal respiratory effort Auscultation: lungs clear to auscultation bilaterally Cardiovascular: Rate/Rhythm: regular rate and regular rhythm Heart Sounds: normal S1 and normal S2 Gastrointestinal (Abdomen): Inspection/Auscultation: abdomen normal to inspection, + abdomen distended and normal bowel sounds Percussion/Palpation: abdomen soft Musculoskeletal: Extremities: + lower extremity abnormal to inspection (Shows improvement with decreasing redness but swelling and tenderness persist) Right Results & Data Laboratory Results Short CBC 09/28/18 Range/Units 10:38 WBC 2.99 L (4.8-10.8) K/uL Hgb 9.9 L (12.0-16.0) g/dL Hct 30.9 L (37-47) % Plt Count 213 (130-400) K/uL BMP 09/28/18 06:16 Creatinine 0.65 Medications Administered Current Inpatient Medications Acetaminophen (Tylenol) 650 mg PO Q4H PRN PRN Reason: Pain or Fever Stop: 10/25/18 16:11 Last Admin: 09/28/18 05:40 Dose: 650 mg Documented by: Al Hydrox/Mg Hydrox/Simethicone (Maalox) 15 ml PO Q4H PRN PRN Reason: Dyspepsia Stop: 10/25/18 16:11 Aspirin (Ecotrin Ectab) 81 mg PO DAILY [facility] Stop: 10/26/18 08:59 Last Admin: 09/28/18 08:48 Dose: 81 mg Documented by: Atorvastatin Calcium (Lipitor) 20 mg PO HS [facility] Stop: 10/25/18 20:59 Last Admin: 09/27/18 21:20 Dose: 20 mg Documented by: Dextrose (Dextrose 50%) 25 - 50 ml IV UD PRN; Protocol PRN Reason: Hypoglycemia Protocol Stop: 10/25/18 16:11 Enoxaparin Sodium (Lovenox) 40 mg SQ Q24H [facility] Stop: 10/25/18 16:59 Last Admin: 09/27/18 17:55 Dose: 40 mg Documented by: Glucagon (Glucagen) 1 mg SQ UD PRN; Protocol PRN Reason: Hypoglycemia Protocol Stop: 10/25/18 16:11 Glucose (Dex4 Glucose) 4 - 8 tabs PO UD PRN; Protocol PRN Reason: Hypoglycemia Protocol Stop: 10/25/18 16:11 Glucose (Glucose 40%) 15 - 30 gm PO UD PRN; Protocol PRN Reason: Hypoglycemia Protocol Stop: 10/25/18 16:11 Piperacillin Sod/Tazobactam (Sod 4.5 gm/ Dextrose) 120 mls @ 30 mls/hr IV Q8H [facility]; Protocol Stop: 10/06/18 01:59 Last Admin: 09/28/18 08:52 Dose: 30 mls/hr Documented by: Insulin Aspart (Novolog Flexpen) 0 units SC ACHS [facility] Stop: 10/25/18 16:29 Last Admin: 09/28/18 08:50 Dose: 2 units Documented by: Insulin Glargine (Lantus Solostar Pen) 0 - 10 units SC BID [facility]; Protocol Stop: 10/25/18 20:59 Last Admin: 09/28/18 08:50 Dose: 5 units Documented by: Lisinopril (Zestril) 40 mg PO QAM [facility] Stop: 10/26/18 08:59 Last Admin: 09/28/18 08:48 Dose: 40 mg Documented by: Magnesium Hydroxide (Milk Of Magnesia) 30 ml PO Q12H PRN PRN Reason: Constipation Stop: 10/25/18 16:11 Miscellaneous (Carbohydrates For Hypoglycemia) 15 - 30 gm PO UD PRN PRN Reason: Hypoglycemia Treatment Stop: 10/25/18 16:11 Miscellaneous Information (Consult) 1 ea N/A UD PRN PRN Reason: Consult Stop: 10/25/18 19:59 Morphine Sulfate (Morphine Sulfate) 2 mg IV Q4H PRN PRN Reason: Severe Pain Stop: 10/09/18 16:11 Ondansetron HCl (Zofran) 4 mg IV Q6H PRN PRN Reason: Nausea Stop: 10/25/18 16:11 Oxycodone HCl (Roxicodone Immediate Rel) 5 mg PO Q6H PRN PRN Reason: Moderate Pain Stop: 10/09/18 16:11 Last Admin: 09/28/18 08:46 Dose: 5 mg Documented by: Oxymetazoline HCl (Afrin 0.05%) 1 sprays NA BID [facility] Stop: 09/29/18 21:01 Last Admin: 09/28/18 08:47 Dose: 1 sprays Documented by: Polyethylene Glycol (Miralax Powder Packet) 17 gm PO DAILY PRN PRN Reason: Constipation Stop: 10/25/18 16:11 Last Admin: 09/27/18 21:21 Dose: 17 gm Documented by: (1) Diabetes Diabetes mellitus type: type 2 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
[2018-09-28] MEDS: ENOXAPARIN INJ 40 MG/0.4 ML SYR SQ SCH ×2 (17:57→18:03)
[2018-09-28] MEDS: ATORVASTATIN 20 MG TAB PO SCH (20:50)
[2018-09-29] MEDS: PIPERACILLIN/TAZOBACTAM 4.5 GM in DEXTROSE 5% 100 ML IV SCH ×2 (01:50→10:09)
[2018-09-29] MEDS: OXYCODONE HCL IR 5 MG TAB (IMMEDIATE RELEASE) PO PRN ×2 (03:20→09:32)
[2018-09-29 07:03] LABS: Creatinine Clr Calc Pharmacy 134.7 ml/min; Est GFR (African American) 111.4; Est GFR (Non-African American) 96.1
--- NOTE | 2018-09-29 08:41 | Hospitalist Progress Note ---
Date of Service September 29, 2018 Assessment & Plan (1) Cellulitis of right lower extremity: per Dr. Jay;s notes: This is a 42-year-old male who has a significant past medical history of T2 DM, psoriasis, polycystic ovarian disease who presents to [facility] secondary to increased redness and swelling of right lowe cellulitis continues to improve continue 10 more days of Augmentin BID ff up with wound care clinic in within 3-5 days ff up with PCP within 3-5 days (2) Diabetes: a1c 9.8 continue outpatient regimen of jardiance, glipizide and tradjenta further management as outpatient (3) HTN (hypertension): BP not at goal systolic bp 160s add Amlodipine 5mg po daily continue usual Lisinopril BP check on ff up with PCP this week (4) DVT prophylaxis: -lovenox given immobility from RLE cellulitis Disposition: D/C to home ff up with PCP in 3-5 days- as outlined in d/c instruction ff up with wound care center in 3-5 days Subjective ff up for leg cellulitis seen resting in bed, comfortable in good spirits states she feels fine overall states leg pain/swelling is much better no fever/chills denies other symptoms Physical Exam Vital Signs (Past 24 Hours): Last Vital Signs Temp 36.7 C 09/29/18 07:41 Pulse 75 09/29/18 07:41 Resp 16 09/29/18 07:41 BP 161/87 H 09/29/18 07:41 Pulse Ox 96 09/29/18 07:41 Physical Exam: General- oriented x 3, not in distress, speaks in sentences with no effort or accessory muscle use Eyes- anicteric Neck- no JVD Lungs- clear breath sounds bilaterally, no rales/wheezes Heart- normal rate, regular rhythm; no murmurs Abdomen- normal bowel sounds, nondistended, soft, nontender Extremities- right lower leg: area of ertyhema on the medial aspect, moderate edema, no warmth/tenderness small wound with dressing in place- no drainage; left lower ext: no pretibial edema, no calf tenderness Neuro- alert, oriented x 3; no gross focal neurologic deficits Skin- warm & dry Results & Data Laboratory Results Laboratory Results - last 24 hr 09/28/18 09/28/18 09/28/18 10:38 11:33 16:36 WBC 2.99 L RBC 3.62 L Hgb 9.9 L Hct 30.9 L MCV 85.4 MCH 27.3 MCHC 32.0 RDW Std Deviation 46.6 H RDW Coeff of Kayy 14.8 H Plt Count 213 MPV 9.0 Immature Gran % (Auto) 0.3 Neut % (Auto) 62.8 Lymph % (Auto) 26.8 Waldo % (Auto) 8.4 Eos % (Auto) 1.7 Baso % (Auto) 0.0 Immature Gran # (Auto) 0.01 Neut # (Auto) 1.88 Lymph # (Auto) 0.80 L Waldo # (Auto) 0.25 Eos # (Auto) 0.05 Baso # (Auto) 0.00 Creatinine Est Cr Clr Drug Dosing Est GFR ( Amer) Est GFR (Non-Af Amer) POC Glucose 188 H 187 H 09/28/18 09/29/18 09/29/18 20:52 06:20 07:50 WBC RBC Hgb Hct MCV MCH MCHC RDW Std Deviation RDW Coeff of Kayy Plt Count MPV Immature Gran % (Auto) Neut % (Auto) Lymph % (Auto) Waldo % (Auto) Eos % (Auto) Baso % (Auto) Immature Gran # (Auto) Neut # (Auto) Lymph # (Auto) Waldo # (Auto) Eos # (Auto) Baso # (Auto) Creatinine 0.76 Est Cr Clr Drug Dosing 134.7 Est GFR ( Amer) 111.4 Est GFR (Non-Af Amer) 96.1 POC Glucose 189 H 146 H (1) Diabetes Diabetes mellitus type: type 2 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
[2018-09-29] MEDS ORDERED: AMLODIPINE BESYLATE 5 MG TAB PO ONE (08:45)
[2018-09-29] MEDS ORDERED: AMLODIPINE BESYLATE 5 MG TAB PO SCH (09:00)
[2018-09-29] MEDS: LISINOPRIL 40 MG TAB PO SCH (09:26)
[2018-09-29] MEDS: ASPIRIN 81 MG ECTAB PO SCH (09:26)
[2018-09-29] MEDS: INSULIN ASPART 100 UNITS/ML 3 ML PEN SC SCH (09:27)
[2018-09-29] MEDS: INSULIN GLARGINE SOLOSTAR 100 UNITS/ML 3 ML PEN SC SCH (09:28)
[2018-09-29] MEDS: OXYMETAZOLINE 0.05% 30 ML BTL SCH (10:08)
--- NOTE | 2018-09-29 10:37 | Discharge Summary ---
Date of Service September 29, 2018 Admission HPI Per Admitting Provider This is a 42-year-old male who has a significant past medical history of T2 DM, psoriasis, polycystic ovarian disease who presents to [facility] secondary to increased redness and swelling of right lower extremity x 3. Patient symptoms initially started on 09/22 with erythema to the right pretibial region. She presented to urgent care on 09/23. She underwent venous Doppler which was negative for DVT and placed on Keflex 500 mg 4 times daily for cellulitis. Patient has not missed a dose of Keflex, but has noticed minimal improvement of symptoms. She was seen by PCP today Dr. Klein who recomm ended patient be seen in ED for likely IV antibiotics. Pt has hx of b/l lower ext cellulitis in 2000 which required IV antibiotics. She has no known injury to trauma to RLE but she does have active psoriasis. She overall feels chills and woke up with sweats early this morning, nausea and decreased appetite. Further she complains of significant right lower extremity pain 03/03. Upon arrival to ED she noticed drainage from right lower extremity. She denies documented fever, dizziness, lightheadedness, chest pain, shortness breath, palpitations, emesis, diarrhea, abdominal pain, dysuria, increased urgency or frequency with urination. Admission Exam Per Admitting Provider Vital Signs (Past 24 Hours): Last Vital Signs Temp 36.7 C 09/25/18 12:17 Pulse 100 H 09/25/18 12:17 Resp 20 09/25/18 12:17 BP 162/97 H 09/25/18 12:17 Pulse Ox 99 09/25/18 12:17 Physical Exam: Gen: WD/WN, morbidly obese, F, NAD, sitting up in bed, pleasant, conversing easily Head: Normocephalic, Atraumatic Eyes: Sclera normal, no conjunctival injection, PERRLA, EOMI ENT: Gross hearing intact, normal pharynx, mucous membranes moist, absent dentition Neck: supple, no adenopathy, No JVD, no bruit, Resp: Clear to auscultation b/l, no wheeze, rales, rhonchi. Normal insp/exp effort, no accessory muscle use CV: Regular rate, regular rhythm, 2/6 harsh natasha noted RUSB, no rub, gallop, or ectopy Abd: +BS x 4, +obese, soft, nontender, nondistended Musculoskeletal: moves extremities active rom x 4, strength intact, good senior environmental technician strength Extremities: RLE edema with significant erythema and warmth starting at medial mallelolar region extending [address] up pretibial surface anterior and extending to popliteal fossa posterior, blanchable, warm, painful to touch. RLE anteriorly has area of clear drainage, LLE no edema, + area of venous insufficiency from prior cellulitis. Skin: warm, moist, no rash, negative turgor, cap refill < 2sec Neuro: Alert and oriented x 3, speech normal, good mood/affect, cran nerve 2-12 intact grossly : deferred Principal Diagnosis RIGHT LOWER LEG CELLULITIS Discharge Exam Vital Signs (Past 24 Hours): Last Vital Signs Temp 36.7 C 09/29/18 07:41 Pulse 75 09/29/18 07:41 Resp 16 09/29/18 07:41 BP 161/87 H 09/29/18 07:41 Pulse Ox 96 09/29/18 07:41 Physical Exam: General- oriented x 3, not in distress, speaks in sentences with no effort or accessory muscle use Eyes- anicteric Neck- no JVD Lungs- clear breath sounds bilaterally, no rales/wheezes Heart- normal rate, regular rhythm; no murmurs Abdomen- normal bowel sounds, nondistended, soft, nontender Extremities- right lower leg: area of ertyhema on the medial aspect, moderate edema, no warmth/tenderness small wound with dressing in place- no drainage; left lower ext: no pretibial edema, no calf tenderness Neuro- alert, oriented x 3; no gross focal neurologic deficits Skin- warm & dry Discharge Data Allergies Allergy/AdvReac Type Severity Reaction Status Date / Time metformin AdvReac Nausea Unverified 09/25/18 12:50 Consultations 09/25/18 13:26 ED Decision to Admit Stat Hospital Course (1) Cellulitis of right lower extremity: per Dr. Jay;s notes: This is a 42-year-old male who has a significant past medical history of T2 DM, psoriasis, polycystic ovarian disease who presents to [facility] secondary to increased redness and swelling of right lowe Patient does not meet SIRS or Sepsis criteria Pt does have extensive RLE Cellulitis which failed outpatient therapy of keflex wound culture drainage and MRSA swab-negative Venous doppler negative 09/23 so do not feel this needs repeated at this time. Blood culture-negative given IV Zosyn x4 days Wound Care Service also consulted cellulitis continues to improve continue 10 more days of Augmentin BID ff up with wound care clinic in within 3-5 days ff up with PCP within 3-5 days (2) Diabetes: a1c 9.8 continue outpatient regimen of jardiance, glipizide and tradjenta further management as outpatient (3) HTN (hypertension): BP not at goal systolic bp 160s add Amlodipine 5mg po daily continue usual Lisinopril BP check on ff up with PCP this week (4) DVT prophylaxis: -lovenox given immobility from RLE cellulitis Disposition: D/C to home ff up with PCP in 3-5 days- as outlined in d/c instruction ff up with wound care center in 3-5 days Total Time Total Time Spent Total Time Spent (In Minutes): 35 minutes Discharge Plan Discharge Items Patient Disposition: Home - Self-Care Reason For Visit: RLE CELLULITIS FAILED OUTPATIENT THERAPY Discharge Diagnosis: CELLULITIS OF THE RIGHT LEG Discharge Goals: Diagnostic testing and Therapeutic intervention Activity: As commented below Activity Comment: RESUME ACTIVITY GRADUALLY TOLERATED, NO HEAVY EXERTION Driving/Machine Use Comment: NO DRIVING UNTIL RE-EVALUATED BY PRIMARY CARE PHYSICIAN Non-emergency contact: Primary Care Provider Call non-emergency contact if: you have any medication questions, your symptoms worsen, your pain is worsening, your pain is unusual for you, your pain is concerning for you, you have a fever, your wound has increased redness, your wound has increased drainage and your wound pain has increased Follow-up/Referrals: Lauren Klein [Primary Care Provider] - 10/02/18 10:15 am Diet: Carb Consistent or DM2 and Heart Healthy Addtl Provider Instructions: PLEASE FOLLOW UP WITH [facility] IN 3-5 DAYS. PLEASE CALL THEIR OFFICE FOR AN APPOINTMENT [phone]. WOUND CARE INSTRUCTIONS: CLEAN AFFECTED AREA WITH MILD SOAP AND WATER. COVER WITH AQUACEL AG. CUT LARGER THAN THE AREA AND SECURE WITH OPTIFOAM. CHANGE EVERYDAY AND NEEDED UNTIL THE DRAINAGE LESSENS THEN CHANGE EVERY OTHER DAY. ALWAYS TAKE A PROBIOTIC DAILY AND INCLUDE YOGURT IN YOUR DAILY DIET WHILE TAKING ANTIBIOTICS AND AT LEAST 1 WEEK AFTER COMPLETING ANTIBIOTIC COURSE. DRINK PLENTY OF FLUIDS. CALL YOUR DOCTOR IMMEDIATELY IF YOU DEVELOP DIARRHEA. Prescriptions: New amlodipine [Norvasc] 5 mg Tablet 5 mg PO QAM 30 Days Qty: 30 RF: 2 amoxicillin-pot clavulanate [Augmentin] 875-125 mg tablet 1 tab PO Q12H 10 Days Qty: 20 RF: 0 Continued atorvastatin 20 mg tablet 20 mg PO HS RF: 0 glipizide 10 mg tablet extended release 24hr 10 mg PO DAILY RF: 0 aspirin 81 mg Tablet,Delayed Release (Dr/Ec) 81 mg PO DAILY RF: 0 lisinopril 40 mg tablet 40 mg PO DAILY RF: 0 Tradjenta 5 mg tablet 5 mg PO DAILY RF: 0 Jardiance 25 mg tablet 25 mg PO DAILY RF: 0 clobetasol 0.05 % Cream 1 applic TOPICAL BID RF: 0 Discontinued sulindac 200 mg tablet 200 mg PO BID RF: 0 Stand-Alone Forms: [facility] Discharge Orders: Discharge Order (Routine); Ordered 09/29/18 Ordered By: Clement Hennessy Admission Data Admit Date/Time: 09/25/18 14:08 Attending Provider: Clement Hennessy Admit Provider: Jarrett Arango Primary Care Provider: Lauren Klein Other Providers: Jarrett Arango ; Tiesha Jay Service: Telemetry Medical Other Interventions: Discharge Summary Assessment (RN) Last Done: 09/29/18 10:19
== END 2018-09-29 11:00 | disposition home or self-care (01) | DRG 603 ==
LOC: ED 12:07 → SUATTDRO 14:08 → 2W 14:08